=== PATIENT | male | born 1930 | race Caucasian/White ===

== ENCOUNTER 2018-09-30 09:17 | Emergency (ER) | payer MEDICARE, OTHER ==
[2018-09-30 09:45] VITALS: BP 143/78
--- NOTE | 2018-09-30 09:45 | EDM.PDOC ---
ED HPI GENERAL MEDICAL PROBLEM - General Chief Complaint: Gastrointestinal Problem Stated Complaint: BLACK STOOLS Time Seen by Provider: 09/30/18 09:44 - History of Present Illness INITIAL COMMENTS - FREE TEXT/NARRATIVE: 87-year-old male presents emergency room with black stools. Patient noticed this last night he had to formed black stools and another one this morning. The patient has not had any nausea or vomiting. The patient is on Eliquis 2.5 mg twice daily for chronic atrial fibrillation.. He is not on any stomach medication he denies any abdominal pain. The patient does not have any other complaints he has some dizziness but this is not new and most notable if he gets up too fast. He has not any chest pain chest pressure breathing difficulties or shortness of breath. - Related Data Allergies Allergy/AdvReac Type Severity Reaction Status Date / Time Penicillins Allergy Cannot Verified 09/30/18 09:45 Remember Home Meds: Home Meds Flaxseed [Numoisyn] 1 tbs PO DAILY 04/05/15 [History] Metoprolol Succinate 50 mg PO DAILY 04/05/15 [History] Multivitamin [Multi-Vitamin Daily] 1 tab PO DAILY 04/05/15 [History] atorvaSTATin [Lipitor] 20 mg PO DAILY 04/05/15 [History] Apixaban [Eliquis] 2.5 mg PO BID 06/29/15 [History] Furosemide [Lasix] 40 mg PO DAILY #30 tablet 06/29/15 [Rx] Digoxin [Lanoxin] 0.125 mcg PO ASDIRECTED 09/30/18 [History] Past Medical History Cardiovascular History: Reports: Afib, Bypass, High Cholesterol, Hypertension, [place] Other Cardiovascular History: 4 vessel 2011 Respiratory History: Reports: None Gastrointestinal History: Reports: None Genitourinary History: Reports: None Musculoskeletal History: Reports: None Neurological History: Reports: None Psychiatric History: Reports: Anxiety, Other (See Below) Other Psychiatric History: confused at times Endocrine/Metabolic History: Reports: None Oncologic (Cancer) History: Reports: None - Infectious Disease History Infectious Disease History: Reports: None - Past Surgical History HEENT Surgical History: Reports: Cataract Surgery Cardiovascular Surgical History: Reports: Coronary Artery Bypass Neurological Surgical History: Reports: None Social & Family History - Caffeine Use Caffeine Use: Reports: Coffee, Soda, Tea - Living Situation & Occupation Living situation: Reports: , with Spouse Occupation: Retired ED ROS GENERAL - Review of Systems Review Of Systems: See Below Constitutional: Reports: No Symptoms HEENT: Reports: No Symptoms Respiratory: Reports: No Symptoms Cardiovascular: Reports: No Symptoms Endocrine: Reports: No Symptoms GI/Abdominal: Reports: Black Stool. Denies: Abdominal Pain, Constipation, Diarrhea, Nausea, Vomiting : Reports: No Symptoms Musculoskeletal: Reports: No Symptoms Skin: Reports: No Symptoms Neurological: Reports: No Symptoms Psychiatric: Reports: No Symptoms ED EXAM, GI/ABD - Physical Exam Exam: See Below Exam Limited By: No Limitations General Appearance: Alert, No Apparent Distress Head: Atraumatic, Normocephalic Neck: Normal Inspection, Supple, Non-Tender, Full Range of Motion Respiratory/Chest: No Respiratory Distress, Lungs Clear, Normal Breath Sounds, Chest Non-Tender Cardiovascular: No Edema, Systolic Murmur (Holosystolic very faint heard best in the right upper sternal border) GI/Abdominal Exam: Normal Bowel Sounds, Soft, Non-Tender Back Exam: Normal Inspection Extremities: Normal Inspection, No Pedal Edema Neurological: Alert, Oriented, Normal Cognition Psychiatric: Normal Affect, Normal Mood EKG INTERPRETATION EKG Date: 09/30/18 Rhythm: A-Fib Rate (Beats/Min): 45 P-Wave: Absent QRS: Other (Intraventricular conduction delay) ST-T: Normal QT: Normal Comparison: No Change EKG Interpretation Comments: Abdomen normal EKG no significant change from prior other than rate variation. He has of bradycardia but this appears to be asymptomatic and appears to be in chronic atrial fibrillation Course - Vital Signs Last Recorded V/S: Last Vital Signs Temp 36.9 C 09/30/18 09:43 Pulse 50 L 09/30/18 09:43 Resp 18 09/30/18 09:43 BP 143/78 H 09/30/18 09:43 Pulse Ox 98 09/30/18 09:43 - Orders/Labs/Meds Orders: Active Orders 24 hr Category Date Time Status EKG Documentation Completion [RC] STAT Care 09/30/18 10:14 Active Labs: Laboratory Tests 09/30/18 09/30/18 09/30/18 Range/Units 10:38 10:38 10:38 WBC 6.48 (4.23-9.07) K/mm3 RBC 4.61 L (4.63-6.08) M/mm3 Hgb 14.9 (13.7-17.5) gm/L Hct 44.8 (40.1-51.0) % MCV 97.2 H (79.0-92.2) fl MCH 32.3 H (25.7-32.2) pg MCHC 33.3 (32.2-35.5) g/dl RDW Std Deviation 47.1 H (35.1-43.9) fL Plt Count 130 L (163-337) K/mm3 MPV 10.9 (9.4-12.3) fl Neutrophils % (Manual) 73 H (40-60) % Band Neutrophils % 0 (0-10) % Lymphocytes % (Manual) 19 L (20-40) % Atypical Lymphs % 0 % Monocytes % (Manual) 6 (2-10) % Eosinophils % (Manual) 2 (0.8-7.0) % Basophils % (Manual) 0 L (0.2-1.2) Platelet Estimate Decreased RBC Morph Comment Normal PT 12.2 H (9.5-12.1) SECONDS INR 1.12 APTT 36 H (24-31) SECONDS Sodium 141 (136-145) mEq/L Potassium 4.2 (3.5-5.1) mEq/L Chloride 105 (98-107) mEq/L Carbon Dioxide 26 (21-32) mEq/L Anion Gap 14.2 (5-15) BUN 43 H (7-18) mg/dL Creatinine 1.5 H (0.7-1.3) mg/dL Est Cr Clr Drug Dosing TNP Estimated GFR (MDRD) 44 (>60) mL/min BUN/Creatinine Ratio 28.7 H (14-18) Glucose 117 H (83-115) mg/dL Calcium 9.6 (8.5-10.1) mg/dL Total Bilirubin 1.3 H (0.2-1.0) mg/dL AST 22 (15-37) U/L ALT 23 (16-63) U/L Alkaline Phosphatase 65 (46-116) U/L Troponin I (0.00-0.056) ng/mL Total Protein 7.0 (6.4-8.2) g/dl Albumin 3.6 (3.4-5.0) g/dl Globulin 3.4 gm/dL Albumin/Globulin Ratio 1.1 (1-2) Digoxin (0.9-2.0) ng/mL 09/30/18 Range/Units 10:38 WBC (4.23-9.07) K/mm3 RBC (4.63-6.08) M/mm3 Hgb (13.7-17.5) gm/L Hct (40.1-51.0) % MCV (79.0-92.2) fl MCH (25.7-32.2) pg MCHC (32.2-35.5) g/dl RDW Std Deviation (35.1-43.9) fL Plt Count (163-337) K/mm3 MPV (9.4-12.3) fl Neutrophils % (Manual) (40-60) % Band Neutrophils % (0-10) % Lymphocytes % (Manual) (20-40) % Atypical Lymphs % % Monocytes % (Manual) (2-10) % Eosinophils % (Manual) (0.8-7.0) % Basophils % (Manual) (0.2-1.2) Platelet Estimate RBC Morph Comment PT (9.5-12.1) SECONDS INR APTT (24-31) SECONDS Sodium (136-145) mEq/L Potassium (3.5-5.1) mEq/L Chloride (98-107) mEq/L Carbon Dioxide (21-32) mEq/L Anion Gap (5-15) BUN (7-18) mg/dL Creatinine (0.7-1.3) mg/dL Est Cr Clr Drug Dosing Estimated GFR (MDRD) (>60) mL/min BUN/Creatinine Ratio (14-18) Glucose (83-115) mg/dL Calcium (8.5-10.1) mg/dL Total Bilirubin (0.2-1.0) mg/dL AST (15-37) U/L ALT (16-63) U/L Alkaline Phosphatase (46-116) U/L Troponin I < 0.017 (0.00-0.056) ng/mL Total Protein (6.4-8.2) g/dl Albumin (3.4-5.0) g/dl Globulin gm/dL Albumin/Globulin Ratio (1-2) Digoxin 0.9 (0.9-2.0) ng/mL Meds: Medications Discontinued Medications Generic Name Dose Route Start Last Admin Trade Name Freq PRN Reason Stop Dose Admin Pantoprazole Sodium 80 mg 09/30/18 12:20 09/30/18 12:37 Protonix Iv IVPUSH 09/30/18 12:21 80 mg BOLUS ONE Administration - Re-Assessments/Exams Free Text/Narrative Re-Assessment/Exam: 09/30/18 12:36 Patient is clinically stable hemoglobin 14.9. He'll be started on Protonix with very close outpatient follow-up. Plan and disposition discussed with Dr. Bush who agrees. With the disposition patient will be given Protonix 40 mg daily #30 with 2 refills instructions to follow-up with his regular provider, Dr. Moyer tomorr or Monday for recheck. Departure - Departure Time of Disposition: 13:00 Disposition: Home, Self-Care 01 Clinical Impression: GI bleed - Discharge Information Referrals: Collin Moyer Jr, MD [Primary Care Provider] - Forms: ED Department Discharge Additional Instructions: Return to the emergency room with any questions problems worsening symptoms. Follow-up with your regular doctor, Dr. Moyer tomorrow or Monday for a recheck. It is anticipated that he will need endoscopy where they take a look in your stomach and possibly your colon. Take the Protonix 1 every morning 30-60 minutes before your morning meal. Stop the Eliquis. Restart this when you were advised to do so - My Orders Last 24 Hours: My Active Orders 09/30/18 10:14 EKG Documentation Completion [RC] STAT - Assessment/Plan Last 24 Hours: My Active Orders 09/30/18 10:14 EKG Documentation Completion [RC] STAT
[2018-09-30] MEDS ORDERED: Pantoprazole 40 MG Vial IVPUSH ONE (12:20)
== END 2018-09-30 13:16 | disposition home or self-care (01) ==
LOC: JD.ED 09:17
DX: K92.2 Gastrointestinal hemorrhage, unspecified (principal); I48.91 Unspecified atrial fibrillation; E78.00 Pure hypercholesterolemia, unspecified; I25.2 Old myocardial infarction; F41.9 Anxiety disorder, unspecified; Z88.0 Allergy status to penicillin; Z95.1 Presence of aortocoronary bypass graft; Z79.899 Other long term (current) drug therapy; Z79.01 Long term (current) use of anticoagulants
CPT/HCPCS: 36415; 80053; 80162; 84484; 85007; 85027; 85610; 85730; 93005; 96374; 99284; C9113; 93010; 99283